=== PATIENT | female | born 1995 | race Two or more races ===

== ENCOUNTER 2025-05-09 09:03 | Outpatient (RCR) | payer MEDICAID, SELFPAY ==
--- NOTE | 2025-05-09 09:55 | CTCCONSULT_ITS ---
Patient: OCTAVIO FITZGERALD : 1995 MR#: [id number] Page 2 of 3 CONSULTATION NOTE DATE OF CONSULTATION: 05/09/2025 NAME: OCTAVIO FITZGERALD ACCOUNT: [id number] : 1995 AGE: 29 REFERRING PHYSICIAN: Cristiane Chapa MD PRIMARY PHYSICIAN: REASON FOR VISIT: History of pulmonary embolism in July 2023 status post 6 months of Lovenox HISTORY OF PRESENT ILLNESS: 29-year-old female with no no history of cancer. Patient is here to follow-up on the history of pulmonary embolism. Patient had a baby and the baby was 3 months old when patient had chest pain and was seen in the emergency room and diagnosed with small pulmonary embolism. At that time no ultrasound of the leg is available to see if patient had the DVT. Patient was ambulatory. Last Lovenox shot was somewhere in February last year Patient patient gives a history of hemophilia in the family. Patient's brother have hemophilia. Hemophilia runs in patient's mother side. Patient have 2 sons and 1 daughter none of them have hemophilia. 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 None Medications Never Reconciled (Reconcile on Approval: ?) ALLERGIES: REVIEW OF SYSTEMS: A complete 14-point review of systems was performed and is negative except as noted in interval history. PHYSICAL EXAMINATION: VITAL SIGNS: PAIN: 0 - No pain ECOG Performance Status: 0 - Asymptomatic and fully active GENERAL APPEARANCE: Appears well, in no apparent distress, appropriately interactive. HEENT: Normocephalic, no temporal wasting, normal conjunctiva, no scleral icterus, normal hearing, lips without lesions, neck normal range of motion. CARDIOVASCULAR: Not assessed. PULMONARY: Normal respiratory effort, no respiratory distress or use of accessory muscles, speaking in full sentences, no tachypnea. EXTREMITIES: No pedal edema or cyanosis. SKIN: Normal skin appearance. NEUROLOGIC: Alert and oriented x4. PSHYCHIATRIC: Appropriate affect, mood normal, behavior normal, intact thought and speech. LABORATORY DATA: I have personally reviewed and interpreted each of the patient?s relevant lab tests, abnormal findings are below: Date ASSESSMENT/PLAN: History of pulmonary embolism Likely provoked and . Already completed 6 months of Lovenox Will get protein C S and factor V Leyden Antiphospholipid antibodies Have 1 miscarriage so far 2 healthy boys and 1 girl RTC with the lab results ORDERS: Order # Description [id number] Comprehensive Metabolic Panel - 12 + CBC with Auto Diff + [id number] Lupus anticoagulant panel [id number] MD Follow Up 2 Months RETURN TO CLINIC: I reviewed the diagnosis, prognosis, and recommended treatment/procedure options with the patient (and/or their legal marketing sales representative), including the potential benefits, risks, side effects and alternative therapies. We also discussed the option of no treatment and the possibility of clinical trial participation, if applicable. All questions were addressed, and they demonstrated understanding. They provided informed consent to proceed with the proposed plan of care. BILLING AND COMPLIANCE: I reviewed external records from providers outside my specialty as summarized above. I spent a total of 50 minutes on this patient?s care on the day of their visit excluding time spent related to any billed procedures. This time includes time spent with the patient as well as time spent documenting in the medical record, reviewing patients records and tests, obtaining history, placing orders, communicating with other healthcare professionals, counseling the patient, family or caregiver, and/or care coordination for the diagnoses above. Electronically Signed by: {Object.Sanct_ID*PnP.NameFL@M}, {Object.Sanct_ID*PnP.Suffix@U} D: {Object.Sanct_Date} T: {Object.Sanct_Time} CC: PCP: Referring: Cristiane Chapa This document was completed utilizing speech recognition software. Grammatical errors, random word insertions, pronoun errors, and incomplete sentences are an occasional consequence of this system due to software limitations, ambient noise, and hardware issues. Any formal questions or concerns about the content, text or information contained within the body of this dictation should be directly addressed to the provider for clarification.
== END 2025-05-22 23:59 | disposition home or self-care (01) ==
LOC: SCTC 09:03
PROVIDERS: PCP Nurse Practitioner Family; Referring Provider Nurse Practitioner Family; Visit Provider Internal Medicine Hematology & Oncology
DX: Z09 Encounter for follow-up examination after completed treatment for conditions other than malignant neoplasm (principal); Z86.711 Personal history of pulmonary embolism
CPT/HCPCS: 99214; G0463